=== PATIENT | female | born 1940 ===

== ENCOUNTER → 2024-01-08 12:13 | Outpatient (BNVA) | payer OTHER, SELFPAY | PROVIDERS: Family Provider Family Medicine; Visit Provider Obstetrics & Gynecology | DX: N89.8 Other specified noninflammatory disorders of vagina (principal) | CPT/HCPCS: 76857 ==

== ENCOUNTER 2024-01-09 09:10 | Outpatient (CLI) | payer MEDICARE, SELFPAY ==
--- NOTE | 2024-01-09 09:20 | FL_ITS ---
WS: [id number] Examination: FL barium swallow [id number] Reason for Exam: DYSPHAGIA, PHARYNGOESOPHAGEAL PHASE Date: January 09, 2024 Comparison: None. Findings: A single column thin barium esophagram was performed due to history of food being stuck in the esopha allsyon and history of dilatation. Thin barium passes through the esophagus to the stomach There is no focal intraesophageal stricture. Extensive tertiary contractions and presbyesophagus is n oted. There is mild narrowing or spasm near the GE junction. 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 No focal stricture is identified however mild narrowing or spasm at the GE junction may be present
--- NOTE | 2024-01-09 09:20 | CT_ITS ---
WS: [id number] CT NECK TECHNIQUE: Contrast-enhanced CT of the neck with coronal and sagittal reformatted images. CLINICAL INFORMATION: DYSPHAGIA,PHARYNGOESOPHAGEAL PHASE COMPARISON: None. DLP: 176.[address] scans at [facility] use at least one of these dose optimization techniques: automated e xposure control; mA and/or kV adjustment per patient size (includes targeted exams where dose is matc hed to clinical indication); or iterative reconstruction. FINDINGS: Paranasal sinuses and mastoid air cells are well aerated. Parotid glands are normal. Normal submandib ular glands. Lung apices are well aerated. Aortic calcification. Sternotomy. Normal posterior nasopharynx. No evidence of supraglottic or glottic mass. Normal subglottic airway. No cervical lymphadenopathy. Exaggeration of the normal cervical lordosis. Interbody bony fusion C6- 7. No other acute findings. IMPRESSION: 1. No evidence of supraglottic or glottic mass. Normal subglottic airway. 2. Normal salivary glands. 3. No cervical lymphadenopathy. 4. Solid-appearing interbody bony fusion at C6-7.
[2024-01-09] MEDS: iohexol 350 mg/mL 500 mL Btl (per mL) IV (10:29)
== END 2024-01-09 09:11 | disposition home or self-care (01) ==
LOC: RAD 09:11
PROVIDERS: Family Provider Family Medicine; Visit Provider Otolaryngology
DX: R13.14 Dysphagia, pharyngoesophageal phase (principal); R22.1 Localized swelling, mass and lump, neck
CPT/HCPCS: 70491; 74220; Q9967

== ENCOUNTER 2024-01-09 09:10 | Outpatient (CLI) | payer MEDICARE, SELFPAY ==
[2024-01-09 10:21] LABS: Blood Urea Nitrogen 12 mg/dL (8-23)
== END 2024-01-09 09:11 | disposition home or self-care (01) ==
LOC: RAD 09:11
PROVIDERS: Family Provider Family Medicine; Visit Provider Otolaryngology
DX: Z01.89 Encounter for other specified special examinations (principal)
CPT/HCPCS: 82565; 84520

== ENCOUNTER → 2024-01-28 09:36 | Outpatient (BNVA) | payer MEDICARE, SELFPAY | PROVIDERS: Family Provider Family Medicine; Referring Provider Obstetrics & Gynecology; Visit Provider Surgery | DX: K64.8 Other hemorrhoids (principal) | CPT/HCPCS: 99204 ==

== ENCOUNTER → 2024-02-18 10:01 | Outpatient (BNVA) | payer MEDICARE, SELFPAY | PROVIDERS: Family Provider Family Medicine; PCP Family Medicine; Visit Provider Surgery | DX: K64.8 Other hemorrhoids (principal) | CPT/HCPCS: 99213 ==